=== PATIENT | female | born 1985 ===

== ENCOUNTER 2017-11-25 00:56 | Inpatient (IN) | payer MEDICAID ==
[2017-11-25 00:56] VITALS: BMI 46.1
--- NOTE | 2017-11-25 02:20 | C.PDOC ---
History Of Present Illness 32 y/o female presents to ED for complaints of vaginal bleeding that began 3 months ago. Patient states her hemoglobin blood count was 7 last week. Patient currently c/o generalized weakness. Denies any other physical complaints. Chief Complaint (Nursing): Female Genitourinary History Per: Patient History/Exam Limitations: no limitations Onset/Duration Of Symptoms: Days (90) Current Symptoms Are (Timing): Still Present Quality Of Discomfort: "Pain" Associated Symptoms: denies: Fever, Chills, Nausea, Vomiting, Diarrhea Alleviating Factors: None Recent travel outside of the [place]: No Abnormal Vaginal Bleeding: Yes Past Medical History Reviewed: Historical Data, Nursing Documentation, Vital Signs Vital Signs: Last Vital Signs Temp 98.9 F 11/25/17 05:39 Pulse 88 11/25/17 05:39 Resp 14 11/25/17 05:39 BP 92/61 L 11/25/17 05:39 Pulse Ox 100 11/25/17 06:44 - Medical History PMH: Anemia, Migraine, Rheumatoid Arthritis Surgical History: (x3) - [facility] Procedures INJECT/INFUSE NEC (03/30/13) PACKED CELL TRANSFUSION (10/21/14) TRANSFUSE NONAUT RED BLOOD CELLS IN PERIPH VEIN, PERC (06/06/15) Family History: States: Unknown Family Hx, Hypertension - Social History Hx Alcohol Use: No Hx Substance Use: No - Immunization History Hx Influenza Vaccination: No Hx Pneumococcal Vaccination: No Review Of Systems Constitutional: Negative for: Fever, Chills Cardiovascular: Negative for: Chest Pain Gastrointestinal: Negative for: Nausea, Vomiting, Abdominal Pain, Diarrhea Genitourinary: Positive for: Vaginal Bleeding. Negative for: Dysuria, Pelvic Pain Skin: Negative for: Rash Neurological: Negative for: Weakness, Numbness Physical Exam - Physical Exam Appears: Well, Non-toxic, No Acute Distress Skin: Normal Color, Warm, Dry Head: Atraumatic, Normacephalic Eye(s): bilateral: Normal Inspection, PERRL, EOMI Oral Mucosa: Moist Neck: Supple Chest: Symmetrical, No Tenderness Cardiovascular: Rhythm Regular, No Murmur Respiratory: Normal Breath Sounds, No Decreased Breath Sounds, No Rales, No Rhonchi, No Wheezing Gastrointestinal/Abdominal: Soft, No Tenderness Pelvic: Vaginal Bleeding (Minimal bleeding noted ), No Cervical Motion Tenderness Extremity: Normal ROM, No Deformity Extremity: Bilateral: Atraumatic, Normal Color And Temperature, Normal ROM Neurological/Psych: Oriented x3, Normal Speech Gait: Steady ED Course And Treatment - Laboratory Results Result Diagrams: 11/25/17 02:31 07 02:31 O2 Sat by Pulse Oximetry: 100 (RA) Pulse Ox Interpretation: Normal - CT Scan/US US pelvis/Transvaginal Other Rad Studies (CT/US): Read By Radiologist, Radiology Report Reviewed CT/US Interpretation: EXAM: US Pelvis Complete, Transabdominal. US Pelvis, Transvaginal. CLINICAL HISTORY: 32 years old, female; Signs and symptoms; Other : Heavy vag bleed; Prior. surgery; Surgery date: 6+ months; Surgery type: 3 c- sections; Additional info: Heavy vaginal bleed. TECHNIQUE: Real-time transabdominal and transvaginal pelvic ultrasound (complete) with image. documentation. Transvaginal imaging was used for better evaluation of the endometrium and. adnexa. COMPARISON: No relevant prior studies available. FINDINGS: Uterus/cervix: Unremarkable. No myometrial mass. Endometrial stripe measures 5 mm in thickness. Right ovary: Unremarkable. No mass. Normal blood flow. Left ovary: 3.6 cm simple cyst or follicle left ovary. Normal blood flow. Free fluid: No free fluid. IMPRESSION: No acute findings. Medical Decision Making Medical Decision Making: Ordered bbk and blood work. Disposition Discussed With : Jared Carranza Doctor Will See Patient In The: Hospital Counseled Patient/Family Regarding: Diagnosis - Disposition Disposition: HOSPITALIZED Disposition Time: 06:45 Condition: STABLE Forms: [facility] (Thai) - POA Present On Arrival: None - Clinical Impression Clinical Impression: Anemia, Symptomatic anemia - Scribe Statement The provider has reviewed the documentation as recorded by the Aronibjaja Chan All medical record entries made by the Aronibjaja were at my direction and personally dictated by me. I have reviewed the chart and agree that the record accurately reflects my personal performance of the history, physical exam, medical decision making, and the department course for this patient. I have also personally directed, reviewed, and agree with the discharge instructions and disposition.
[2017-11-25 02:35] LABS: BASO % 0.7 % (0.0-2.0); EOS % 0.7 % (0.0-4.0); LYMPH % 21.9 % (20.0-40.0); MEAN CORPUSCULAR HGB CONC 31.4 g/dL (33.0-37.0); MONO # 0.3 K/uL (0.0-0.8); MONO % 7.4 % (0.0-10.0); NEUT # 3.2 K/uL (1.8-7.0); NEUT % 69.3 % (50.0-75.0); RBC 2.67 Mil/uL (3.80-5.20); RED CELL DISTRIBUTION WIDTH 17.6 % (11.5-14.5); WHITE BLOOD COUNT 4.6 K/uL (4.8-10.8)
[2017-11-25 02:41] LABS: INR 1.1; PROTHROMBIN TIME 12.2 SECONDS (9.7-12.2)
[2017-11-25 02:50] LABS: HEMOGLOBIN 5.6 g/dL (11.0-16.0)
[2017-11-25 03:15] LABS: ALB/GLOB RATIO 1.2 (1.0-2.1); ALBUMIN 3.8 g/dL (3.5-5.0); ALT/SGPT 52 U/L (9-52); AST/SGOT 34 U/L (14-36); BLOOD UREA NITROGEN 15 mg/dL (7-17); CALCIUM 8.4 mg/dl (8.6-10.4); GFR AFRICAN-AMERICAN > 60; GFR NON-AFRICAN AMERICAN > 60
[2017-11-25 05:36] LABS: % IRON SATURATION 2.5 (20-55)
[2017-11-25] MEDS ORDERED: Ferric Sodium Gluconat Complex 62.5 mg/5 ml Vial IVPB STA (06:51)
[2017-11-25 10:20] VITALS: RESP 20
--- NOTE | 2017-11-25 10:52 | US ---
HISTORY: heavy vaginal bleed COMPARISON: None available. TECHNIQUE: Grayscale, color Doppler and spectral evaluation the pelvis performed transabdominally and transvaginally. FINDINGS: UTERUS: Measures 12.7 x 4.4 x 6.5 cm. Anteverted, retroflexed. Normal in size and appearance. No fibroid or other mass lesion seen. ENDOMETRIUM: Measures 5 mm in diameter. Unremarkable. CERVIX: No cervical abnormality identified. RIGHT OVARY: Measures 4.0 x 1.9 x 4.0 cm. No solid mass. Normal flow. LEFT OVARY: Measures 4.9 x 3.8 x 5.5 cm. Cyst measuring 2.7 x 2.9 x 3.6 cm. Normal flow. FREE FLUID: No significant free fluid noted. OTHER FINDINGS: None. IMPRESSION: Unremarkable pelvic ultrasound.
[2017-11-25] MEDS ORDERED: MethylPREDNISolone 40 mg Vial IVP STA ×3 (13:06→17:44)
--- NOTE | 2017-11-25 13:40 | CP.PCM.PN ---
Subjective - Date & Time of Evaluation Date of Evaluation: 11/25/17 Time of Evaluation: 13:39 - Subjective Subjective: Internal Medicine Progress Note - Dr Carranza Service Patient seen and examined at bedside. Per nursing no acute events. Patient states that she is currently on her period and has been having heavy periods for the last few months. Also complaining of generalized weakness. In the ED patient found to have a hgb of 5.6. 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 She states that her last hgb was 7.0. Offers no other complaints. Still having vaginal bleeding. Denies headaches, dizziness, cp, palpitations, sob, abdominal pain, urinary symptoms. Objective - Vital Signs/Intake and Output Vital Signs (last 24 hours): Temp Pulse Resp BP Pulse Ox 98.4 F 84 20 108/71 100 11/25/17 09:00 11/25/17 09:00 11/25/17 09:00 11/25/17 09:00 11/25/17 09:00 Intake and Output: 11/25/17 11/25/17 06:59 18:59 Intake Total 0 Balance 0 - Medications Medications: Current Medications Pneumococcal Polyvalent Vaccine (Pneumovax 23 Vaccine) 0.5 ml IM .ONCE ONE Stop: 11/27/17 10:01 - Labs Labs: 11/25/17 02:31 11/25/17 02:31 PT 12.2 SECONDS (9.7-12.2) 11/25/17 02:31 INR 1.1 11/25/17 02:31 APTT 30 SECONDS (21-34) 11/25/17 02:31 - Constitutional Appears: Well, No Acute Distress - Head Exam Head Exam: ATRAUMATIC, NORMAL INSPECTION, NORMOCEPHALIC - Eye Exam Eye Exam: EOMI, Normal appearance Pupil Exam: NORMAL ACCOMODATION - ENT Exam ENT Exam: Mucous Membranes Moist - Neck Exam Neck Exam: Full ROM - Respiratory Exam Respiratory Exam: Clear to Ausculation Bilateral, NORMAL BREATHING PATTERN. absent: Rales, Rhonchi, Wheezes - Cardiovascular Exam Cardiovascular Exam: REGULAR RHYTHM, +S1, +S2 - GI/Abdominal Exam GI & Abdominal Exam: Soft, Normal Bowel Sounds. absent: Guarding, Rigid, Tenderness - Extremities Exam Extremities Exam: Normal Inspection - Neurological Exam Neurological Exam: Alert, Awake, Oriented x3 - Psychiatric Exam Psychiatric exam: Normal Affect, Normal Mood - Skin Skin Exam: Dry, Pallor, Warm Assessment and Plan - Assessment and Plan (Free Text) Assessment: A/P: Patient is a 32 year old female with no significant past medical history presents with menorrhagia. Found to have a hemoglobin of 5.6 in the ED. Symptomatic Anemia likely 2/2 Menorrhagia -Stable, afebrile -Urine negative -S/P Ferrous gluconate x 1 dose, solumedrol 20mg x 1 dose -Will transfuse 3 units of PRBCs -Follow up post transfusion CBC -Pelvic/Transvaginal US unremarkable -Heme/onc on consult, help appreciated -ASPHALT MACHINE OPERATOR on consult, help appreciated GI/DVT ppx -No GI ppx indicated at this time -SCDS DISPO: Patient is cleared for discharge home after transfusions of PRBCs and post transfusion CBC. Patient to follow up with her ASPHALT MACHINE OPERATOR outpatient for further management. Continue iron supplementation. Plan discussed with Dr Carranza. Lizzette Dillard DO PGY-2
[2017-11-25 16:23] VITALS: O2SAT 96
[2017-11-25] MEDS ORDERED: Pneumococcal 23-Valent Vaccine IM ONE (19:30)
[2017-11-25 22:22] VITALS: BP 120/78; PULSE 85
[2017-11-25 22:49] VITALS: TEMP 98.3
[2017-11-25 23:23] LABS: BASO % 0.2 % (0.0-2.0); LYMPH # 0.3 K/uL (1.0-4.3); LYMPH % 3.5 % (20.0-40.0); MEAN PLATELET VOLUME 9.3 fL (7.2-11.7); MONO # 0.3 K/uL (0.0-0.8); MONO % 2.9 % (0.0-10.0); NEUT # 8.1 K/uL (1.8-7.0); NEUT % 93.4 % (50.0-75.0); PLATELET COUNT 196 K/uL (130-400); RBC 3.52 Mil/uL (3.80-5.20); RED CELL DISTRIBUTION WIDTH 22.3 % (11.5-14.5); WHITE BLOOD COUNT 8.7 K/uL (4.8-10.8)
[2017-11-25 23:24] LABS: HEMOGLOBIN 8.1 g/dL (11.0-16.0)
--- NOTE | 2017-11-26 01:28 | CP.PCM.CON ---
History of Present Illness - History of Present Illness History of Present Illness: 32 yo female with 3 prior C/S's , last one 8 yrs ago. LMP 11/01/17 and admits to menses Q 3 months but prolonged and heavy and for the past 3 years. Pt presented to ER with C?O of heavy Vaginal Bleeding for the past 3 weeks, which started slow and increasingly heavier until passing large blood clots and started feeling somewhat weak. Pt further states that she was given OC's at one time but "I don't need them if I already have a Tubal Ligation". She was also given Provera and took it for one month only. Appears like poor complicance with proposed treatment plans by her Ruby On Rails Software Developer. Hoping for a Hysterectomy. Review of Systems - Review of Systems All systems: reviewed and no additional remarkable complaints except - Constitutional Constitutional: As Per HPI - Reproductive: Female Reproductive:Female: Cycle Variable, Heavy Menses, Abnormal Vaginal Bleeding - Menstruation Menstruation: Menses Variable, Heavy Menses Past Patient History - Tetanus Immunizations Tetanus Immunization: Unknown - Past Medical History & Family History Past Medical History?: No Past Family History: Reviewed and not pertinent - Past Social History Smoking Status: Never Smoked Alcohol: Occasional Drugs: Denies Home Situation {Lives}: With Family Domestic Violence: Negative - CARDIAC Hx Cardiac Disorders: No - PULMONARY Hx Respiratory Disorders: No - NEUROLOGICAL Hx Neurological Disorder: No Hx Migraine: Yes - HEENT Hx HEENT Problems: No - RENAL Hx Chronic Kidney Disease: No - ENDOCRINE/METABOLIC Hx Endocrine Disorders: No - HEMATOLOGICAL/ONCOLOGICAL Hx Blood Disorders: No Hx Anemia: Yes Hx Blood Transfusions: Yes Hx Blood Transfusion Reaction: Yes - INTEGUMENTARY Hx Dermatological Problems: No - MUSCULOSKELETAL/RHEUMATOLOGICAL Hx Musculoskeletal Disorders: No Hx Falls: No Hx Rheumatoid Arthritis: Yes - GASTROINTESTINAL Hx Gastrointestinal Disorders: No Other/Comment: gastric sleeve - GENITOURINARY/GYNECOLOGICAL Hx Genitourinary Disorders: Yes Other/Comment: Prolonged munstrual period - PSYCHIATRIC Hx Psychophysiologic Disorder: No Hx Substance Use: No - SURGICAL HISTORY Hx Surgeries: Yes Hx Section: Yes (X3 2005,2007,2009) Other/Comment: gastric sleeve - ANESTHESIA Hx Anesthesia: Yes Hx Anesthesia Reactions: No Hx Malignant Hyperthermia: No Meds Allergies/Adverse Reactions: Allergies Allergy/AdvReac Type Severity Reaction Status Date / Time levofloxacin [From Levaquin] Allergy RASH Verified 11/25/17 01:12 Physical Exam - Exam Exam: NORMAL INSPECTION External exam: NORMAL EXTERNAL EXAM Speculum exam: NORMAL SPECULUM EXAM Bimanual exam: NORMAL BIMANUAL EXAM Results - Vital Signs Recent Vital Signs: Last Vital Signs Temp 98.3 F 11/25/17 22:47 Pulse 85 11/25/17 22:21 Resp 20 11/25/17 22:21 BP 120/78 11/25/17 22:21 Pulse Ox 96 11/25/17 16:00 - Labs Result Diagrams: 11/25/17 23:19 11/25/17 02:31 Labs: Laboratory Results - last 24 hr 11/25/17 11/25/17 11/25/17 02:31 02:31 02:31 WBC 4.6 L RBC 2.67 L Hgb 5.6 L* Hct 17.9 L MCV 67.0 L D MCH 21.0 L MCHC 31.4 L RDW 17.6 H Plt Count 220 MPV 9.0 Neut % (Auto) 69.3 Lymph % (Auto) 21.9 Brantley % (Auto) 7.4 Eos % (Auto) 0.7 Baso % (Auto) 0.7 Neut # (Auto) 3.2 Lymph # (Auto) 1.0 Brantley # (Auto) 0.3 Eos # (Auto) 0.0 Baso # (Auto) 0.0 PT 12.2 INR 1.1 APTT 30 Sodium 144 Potassium 3.8 Chloride 110 H Carbon Dioxide 25 Anion Gap 13 BUN 15 Creatinine 0.7 Est GFR ( Amer) > 60 Est GFR (Non-Af Amer) > 60 Random Glucose 119 H Calcium 8.4 L Iron TIBC % Saturation Total Bilirubin 0.5 AST 34 ALT 52 Alkaline Phosphatase 63 Total Protein 7.0 Albumin 3.8 Globulin 3.2 Albumin/Globulin Ratio 1.2 Folate Beta HCG, Quant < 2.39 Blood Type Antibody Screen Antibody Identification 11/25/17 11/25/17 11/25/17 02:31 03:37 03:51 WBC RBC Hgb Hct MCV MCH MCHC RDW Plt Count MPV Neut % (Auto) Lymph % (Auto) Brantley % (Auto) Eos % (Auto) Baso % (Auto) Neut # (Auto) Lymph # (Auto) Brantley # (Auto) Eos # (Auto) Baso # (Auto) PT INR APTT Sodium Potassium Chloride Carbon Dioxide Anion Gap BUN Creatinine Est GFR ( Amer) Est GFR (Non-Af Amer) Random Glucose Calcium Iron 10 L TIBC 395 % Saturation 2.5 L Total Bilirubin AST ALT Alkaline Phosphatase Total Protein Albumin Globulin Albumin/Globulin Ratio Folate 6.9 Beta HCG, Quant Blood Type O POSITIVE Antibody Screen Positive Antibody Identification Anti c 11/25/17 23:19 WBC 8.7 D RBC 3.52 L Hgb 8.1 L D Hct 25.4 L MCV 72.0 L D MCH 23.0 L MCHC 32.0 L RDW 22.3 H Plt Count 196 MPV 9.3 Neut % (Auto) 93.4 H Lymph % (Auto) 3.5 L Brantley % (Auto) 2.9 Eos % (Auto) 0.0 Baso % (Auto) 0.2 Neut # (Auto) 8.1 H Lymph # (Auto) 0.3 L [place]ley # (Auto) 0.3 Eos # (Auto) 0.0 Baso # (Auto) 0.0 PT INR APTT Sodium Potassium Chloride Carbon Dioxide Anion Gap BUN Creatinine Est GFR ( Amer) Est GFR (Non-Af Amer) Random Glucose Calcium Iron TIBC % Saturation Total Bilirubin AST ALT Alkaline Phosphatase Total Protein Albumin Globulin Albumin/Globulin Ratio Folate Beta HCG, Quant Blood Type Antibody Screen Antibody Identification Assessment & Plan - Assessment and Plan (Free Text) Assessment: Irregular menses with Oligomenorrhea and then Metrorrhagia with subsequent Anemia and requiring Several blood transfusions over the 3 past years Currently severe Anemia and undergoing blood transfusions Feels better and presently bleeding only mildly as visualized on exam Obesity and recently underwent a Sleeve procedure and had lost 20 lbs in about 3 weeks Labs and Us reviewed and essentially WNL excspt for the Anemia Will order Estrogen and Progesterone level with next blood draw Probably a Hormonal imbalance that most likely could be managed as outpatient as long as patient follows the plan for few months to obtain better results Pt counseled re compliance and hopefuly her Hb/Hct will stabilize which may be needed even if she continues requesting a Hysterectomy Discussed with patient possibility of Depoprovera and will consider it Thanks for consultation - Date & Time Date: 11/25/17 Time: 14:45
[2017-11-26 02:22] LABS: ANISOCYTOSIS MODERATE; HYPOCHROMIC MODERATE; LYMPHOCYTE 3 % (20-40); MICROCYTOSIS MODERATE; MONOCYTE 3 % (0-10); NEUTROPHIL 94 % (50-75); PLATELET ESTIMATE NORMAL (NORMAL); POLYCHROMIC MODERATE; TOTAL CELLS COUNTED 100
[2017-11-26 02:23] LABS: OVALOCYTES SLIGHT
== END 2017-11-25 23:30 | disposition home or self-care (01) | DRG 395 ==
LOC: C.ER 00:56 → C.9E 07:00 → C.3T 07:55
PROVIDERS: ADMIT Internal Medicine Pulmonary Disease; ATTEND Internal Medicine Pulmonary Disease
PROC: 30233N1 Transfusion of Nonautologous Red Blood Cells into Peripheral Vein, Percutaneous Approach (ICD-10-PCS; principal; 2017-11-25)
DX: D50.0 Iron deficiency anemia secondary to blood loss (chronic) (principal); N92.1 Excessive and frequent menstruation with irregular cycle; M06.9 Rheumatoid arthritis, unspecified